=== PATIENT | male | born 1985 | race Two or more races ===

== ENCOUNTER 2022-06-06 19:17 | Emergency (ER) | payer MEDICAID, OTHER ==
[~2022-06-06] VITALS: Ht 170.2 cm; Wt 90.7 kg
[2022-06-06 19:17] VITALS: BP 172/97
[2022-06-06] MEDS ORDERED: TETANUS-DIPTH-ACEL PERTUSSIS 0.5ML SYR Tdap IM ONE (23:15)
[2022-06-06] MEDS ORDERED: CLIN300C8 PO (23:20)
== END 2022-06-06 23:27 | disposition home or self-care (01) ==
LOC: ER 19:17
DX: L02.512 Cutaneous abscess of left hand (principal); Z79.2 Long term (current) use of antibiotics
CPT/HCPCS: 26010; 73130; 90471; 90715

== ENCOUNTER 2023-09-02 15:38 | Emergency (ER) | payer MEDICAID ==
[~2023-09-02] VITALS: Ht 170.2 cm; Wt 87.0 kg
[~2023-09-02 15:38] MED LIST: CLIN300C70 PO
[2023-09-02 16:03] VITALS: BP 176/88; PULSE 72; RESP 16; RESP 18; TEMP 97.9; O2SAT 99
[2023-09-02 16:32] LABS: Basophils # (auto) 0 10 ^3/uL (0-0.2); Basophils % (auto) 0.4 % (0.0-2.0); Eosinophils # (auto) 0.1 10 ^3/uL (0-0.8); Eosinophils % (auto) 0.6 % (0.0-7.0); Hematocrit 48.3 % (41.0-53.0); Hemoglobin 16.5 g/dL (13.5-17.5); Lymphocytes # (auto) 1.1 10 ^3/uL (0.4-5.4); Lymphocytes % (auto) 13.6 % (10.0-50.0); Mean Corpuscular Hemoglobin 29.9 pg (28.0-32.0); Mean Corpuscular Hgb Conc. 34.2 g/dL (32.0-36.0); Mean Corpuscular Volume 87.6 fL (80.0-100.0); Monocytes # (auto) 0.4 10 ^3/uL (0-1.3); Monocytes % (auto) 5.2 % (0.0-12.0); Neutrophils # (auto) 6.6 10 ^3/uL (1.6-8.6); Neutrophils % (auto) 80.2 % (37.0-80.0); Nucleated Red Blood Cells % 0.1 %; Red Blood Cells 5.52 10^6/uL (4.5-5.90); Red Cell Distribution Width 14.2 % (11.8-14.3); White Blood Cell 8.3 10^3/uL (4.4-10.8)
[2023-09-02 16:51] LABS: Acetaminophen < 2.0 UG/ML (10.0-20.0); Alanine Aminotransferase 12 U/L (7-40); Albumin 4.8 g/dL (3.2-4.8); Alkaline Phosphatase 78 U/L (46-116); Anion Gap 6 (5-15); Aspartate Aminotransferase 16 U/L (13-40); BUN/Creatinine Ratio 10.4 (10.0-20.0); Bilirubin, Total 1.7 mg/dL (0.2-1.0); Blood Urea Nitrogen 7 mg/dL (9-23); Calcium 9.4 mg/dL (8.7-10.4); Carbon Dioxide 24 mmol/L (20-30); Chloride 108 mmol/L (98-107); Glucose 102 mg/dL (74-106); Potassium 3.6 mmol/L (3.5-5.1); Sodium 138 mmol/L (136-145); Total Protein 7.6 g/dL (5.7-8.2)
[2023-09-02 17:01] LABS: Salicylate < 3.0 mg/dL (2.8-20.0)
== END 2023-09-02 17:30 | disposition left against medical advice (07) ==
LOC: EDUNIT# 15:38 → ER 15:38 → EDBD 15:38 → ER 17:30
DX: M54.50 Low back pain, unspecified (principal); Z53.21 Procedure and treatment not carried out due to patient leaving prior to being seen by health care provider
CPT/HCPCS: 36415; 80053; 80329; 85025